=== PATIENT | female | born 1960 | race Caucasian/White ===

== ENCOUNTER 2017-11-04 08:54 | Day surgery (SDC) | payer OTHER ==
[~2017-11-04 08:54] MED LIST: LACTATED RINGERS 1,000 ML IV.SOLN IV ONE; PROPOFOL 500 MG/50 ML VIAL IV ONE; SALINE FLUSH 10 ML DISP.SYRIN IVF ONE
--- NOTE | 2017-11-05 11:19 | GI Report ---
REFERRING PHYSICIAN: Dr. Micha Rincon SUCKER MACHINE OPERATOR: Vicente Walker MD PROCEDURE MEDICATION: Propofol as per anesthesia. 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 She denies any problems until recently she has had a change in bowel habits with cramps in the left lower quadrant, irregular stools with mucus, but no bleeding. She denies a family history of known colorectal cancer. Again, since it has been about 10 years since her last colonoscopy and with a change in her bowel habits, she is referred for the above indications. PROCEDURE PERFORMED: Colonoscopy, polypectomy, and biopsies. PROCEDURE: An Olympus video colonoscope was advanced into the rectum. She has a fairly atonic redundant colon. It took maneuvering to supine position and nurse compression to finally reach the cecum. The appendiceal orifice and terminal ileum looked normal. No obvious inflammatory bowel disease. In the cecum, about 2 cm above the ileocecal valve, the patient had a flat serrated-appearing adenoma removed with a cold snare and then a smaller one just cold biopsy removed and submitted together. The remaining part of the ascending colon and transverse colon looked normal. The descending colon and sigmoid, we went back and forth several times, I really did not see diverticular disease. Mucosa maybe was 1+ granular, so we did take some biopsies looking for microscopic colitis. It is a fairly spastic redundant colon in the sigmoid. Retroflexion of the rectum was normal. Patient tolerated the procedure well. FINDINGS: 1. Two small flat polyps removed in the cecum. 2. Biopsies taken in the sigmoid colon to rule out microscopic colitis. 3. Atonic spastic redundant colon. RECOMMENDATIONS: 1. Increase fiber in the diet, such as Benefiber. 2. Pending the pathology, consider re-looking at her colon within 5 years. cc: Dr. Micha GREGORY
== END 2017-11-04 08:56 ==
LOC: OPSURG 08:54
PROVIDERS: ATTEND Internal Medicine Gastroenterology
DX: R19.4 Change in bowel habit (principal); K63.5 Polyp of colon; D12.0 Benign neoplasm of cecum; K59.8 Other specified functional intestinal disorders
CPT/HCPCS: 45385; 88305; J2704; J7120; S1016